=== PATIENT | female | born 1950 | race Caucasian/White ===

== ENCOUNTER 2017-07-29 | Day surgery (SDC) | END 2017-07-29 12:39 | disposition home or self-care (01) ==

== ENCOUNTER 2021-06-14 10:56 | Day surgery (SDC) | payer OTHER ==
[~2021-06-14] VITALS: Ht 160 cm; Wt 55.2 kg
[~2021-06-14 10:56] MED LIST: AMIT50; AMIT50 PO; AMLO5; ASPI325 PO; ATOR40TA PO; AZIT500 PO; Amoxicillin875 MG PO; BUDE6HFA; BUDE6HFA INH; CARV6.25 PO; CHLO500 PO; CHOL10002; CLON.1 PO; DIAZ2 PO; ENJUVIA; ESTR.1TPBW; ESTR1; ESTR2 PO; EZET10-20 PO; GABA300 PO; HYDACE5 PO; HYDACE7.5; IBUP800; IBUP800 PO; LOSA50 PO; LOSHYD100 PO; MELO7.5 PO; METCAR500 PO; MYRBETRIQ25 MG; Norco PO; OLME20; OLME20-12. PO; OXYACE5T PO; OXYC10TA19 PO; RXALBOI INH; RXCYCL10 PO; RXHYDACE PO; RXPROACE PO
[2021-06-14] MEDS ORDERED: CARV6.25 (11:16)
== END 2021-06-14 12:51 | disposition home or self-care (01) ==
LOC: ORSCSDS 10:56
PROVIDERS: Anesthesiology
PROC: 3E0R33Z Introduction of Anti-inflammatory into Spinal Canal, Percutaneous Approach (ICD-10-PCS; principal; 2021-06-14 12:00)
DX: M51.16 Intervertebral disc disorders with radiculopathy, lumbar region (principal); M54.50 Low back pain, unspecified; B19.20 Unspecified viral hepatitis C without hepatic coma; I10 Essential (primary) hypertension; Z79.82 Long term (current) use of aspirin; Z79.899 Other long term (current) drug therapy
CPT/HCPCS: J1040

== ENCOUNTER 2021-09-25 12:43 | Day surgery (SDC) | payer OTHER ==
[~2021-09-25] VITALS: Ht 160 cm; Wt 55.4 kg
[~2021-09-25 12:43] MED LIST changes: +CARV6.25
== END 2021-09-25 13:27 | disposition home or self-care (01) ==
LOC: ORSCSDS 12:43
PROVIDERS: Anesthesiology
PROC: 3E0R33Z Introduction of Anti-inflammatory into Spinal Canal, Percutaneous Approach (ICD-10-PCS; principal; 2021-09-25 15:30)
DX: M51.16 Intervertebral disc disorders with radiculopathy, lumbar region (principal); I10 Essential (primary) hypertension; B19.20 Unspecified viral hepatitis C without hepatic coma; F11.90 Opioid use, unspecified, uncomplicated; Z79.82 Long term (current) use of aspirin; Z79.899 Other long term (current) drug therapy
CPT/HCPCS: J1040

== ENCOUNTER 2022-03-18 06:56 | Day surgery (SDC) | payer OTHER ==
[~2022-03-18] VITALS: Ht 160 cm; Wt 54.5 kg
[2022-03-18] MEDS ORDERED: ATOR40TA (07:14)
== END 2022-03-18 09:40 | disposition home or self-care (01) ==
LOC: ORSCSDS 06:56
PROVIDERS: Student in an Organized Health Care Education/Training Program
PROC: 0DBL8ZX Excision of Transverse Colon, Via Natural or Artificial Opening Endoscopic, Diagnostic (ICD-10-PCS; principal; 2022-03-18 08:00)
PROC: 0DBN8ZX Excision of Sigmoid Colon, Via Natural or Artificial Opening Endoscopic, Diagnostic (ICD-10-PCS; principal; 2022-03-18 08:00)
PROC: 0DB58ZX Excision of Esophagus, Via Natural or Artificial Opening Endoscopic, Diagnostic (ICD-10-PCS; principal; 2022-03-18 08:00)
PROC: 0DB48ZX Excision of Esophagogastric Junction, Via Natural or Artificial Opening Endoscopic, Diagnostic (ICD-10-PCS; principal; 2022-03-18 08:00)
PROC: 0DBK8ZX Excision of Ascending Colon, Via Natural or Artificial Opening Endoscopic, Diagnostic (ICD-10-PCS; principal; 2022-03-18 08:00)
PROC: 0DB78ZX Excision of Stomach, Pylorus, Via Natural or Artificial Opening Endoscopic, Diagnostic (ICD-10-PCS; principal; 2022-03-18 08:00)
DX: R13.10 Dysphagia, unspecified (principal); K21.9 Gastro-esophageal reflux disease without esophagitis; Z86.010 Personal history of colon polyps; B96.81 Helicobacter pylori [H. pylori] as the cause of diseases classified elsewhere; D12.2 Benign neoplasm of ascending colon; D12.3 Benign neoplasm of transverse colon; K63.5 Polyp of colon; K29.70 Gastritis, unspecified, without bleeding; K44.9 Diaphragmatic hernia without obstruction or gangrene; K57.30 Diverticulosis of large intestine without perforation or abscess without bleeding; F17.210 Nicotine dependence, cigarettes, uncomplicated; I10 Essential (primary) hypertension; Z79.899 Other long term (current) drug therapy; Z79.82 Long term (current) use of aspirin
CPT/HCPCS: 82947; 88305; 88342; J2704; J7120

== ENCOUNTER 2025-01-03 13:51 | Emergency (ER) | payer OTHER ==
[~2025-01-03] VITALS: Ht 160 cm; Wt 48.0 kg
[~2025-01-03 13:51] MED LIST changes: +ATOR40TA
[2025-01-03 14:26] LABS: BASOPHILS ABSOLUTE AUTO 0.06 K/mm3 (0.00-0.23); BASOPHILS PERCENT AUTO 0 % (0-2); EOSINOPHILS ABSOLUTE AUTO 0.19 K/mm3 (0.00-0.68); EOSINOPHILS PERCENT AUTO 1 % (0-6); Hematocrit 37.3 % (33.0-51.0); Hemoglobin 12.5 g/dL (11.5-16.0); IMMATURE GRAN ABSOLUTE AUTO 0.07 K/mm3 (0.00-0.10); IMMATURE GRAN PERCENT AUTO 1 % (0-1); LYMPHOCYTES ABSOLUTE AUTO 2.84 K/mm3 (0.84-5.20); LYMPHOCYTES PERCENT AUTO 20 % (21-46); MONOCYTES ABSOLUTE AUTO 1.36 K/mm3 (0.16-1.47); MONOCYTES PERCENT AUTO 10 % (4-13); Mean Corpuscular HGB Conc 33.5 g/dL (31.5-36.5); Mean Corpuscular Volume 95 fL (80-100); NEUTROPHILS ABSOLUTE AUTO 9.70 K/mm3 (1.96-9.15); NEUTROPHILS PERCENT AUTO 68 % (41-73); NRBC ABSOLUTE 0.00 K/mm3 (0.00-0.02); NRBC Auto 0.0 /100 WBC (0.0-0.2); Platelet Count 365 K/mm3 (150-400); RDW Coefficient Variation 12.3 % (11.7-14.2); RDW Standard Deviation 43.1 fL (35.1-46.3)
[2025-01-03 14:46] LABS: Alanine Aminotransfer (ALT/SGP 18.0 U/L (12-78); Albumin, Blood 2.9 g/dL (3.4-5.0); Albumin/Globulin Ratio 0.7 (0.8-1.8); Anion Gap 9.0 mmol/L (3-11); Aspartate Aminotrans (AST/SGOT 16.0 U/L (12-37); Bilirubin, Total 0.3 mg/dL (0.1-1.0); Blood Urea Nitrogen 11.0 mg/dL (8-24); CO2, Blood 23.0 mmol/L (21-32); Calcium, Blood 9.0 mg/dL (8.5-10.1); Chloride, Blood 106.0 mmol/L (98-108); Creatinine, Blood 0.6 mg/dL (0.40-1.00); Globulin, Blood 4.4 g/dL (2.2-4.0); Glucose, Blood 104.0 mg/dL (70-99); Potassium, Blood 3.6 mmol/L (3.5-5.5); Sodium, Blood 134.0 mmol/L (136-145); Total Protein, Blood 7.3 g/dL (6.4-8.2)
[2025-01-03 16:52] VITALS: BP 156/82
[2025-01-03] MEDS ORDERED: AMOCLA875 PO (17:02)
[2025-01-03] MEDS ORDERED: DOXY100 PO (17:02)
== END 2025-01-03 17:09 | disposition home or self-care (01) ==
LOC: ER 13:51
PROVIDERS: Physician Assistant
DX: J18.9 Pneumonia, unspecified organism (principal); J44.0 Chronic obstructive pulmonary disease with (acute) lower respiratory infection; I10 Essential (primary) hypertension; F17.200 Nicotine dependence, unspecified, uncomplicated; Z88.5 Allergy status to narcotic agent; Z88.6 Allergy status to analgesic agent; Z79.82 Long term (current) use of aspirin; Z79.899 Other long term (current) drug therapy
CPT/HCPCS: 71046; 80053; 85025; 93005; 93010; 99284-25; A9270